=== PATIENT | female | born 1980 | race Caucasian/White ===

== ENCOUNTER → 2016-10-16 | Outpatient (CLI) | payer BC ==
[~2016-10-16] MED LIST: CETI10TA84 PO; PRENTAB26 PO
[2016-10-16 18:12] LABS: URINE APPEARANCE CLEAR (CLEAR); URINE BILIRUBIN NEG (NEG); URINE COLOR YELLOW; URINE NITRITE NEG (NEG); URINE PH 7.5 (4.5-7.5); URINE SPECIFIC GRAVITY 1.012 (1.000-1.030); UROBILINOGEN NEG (NEG)
[2016-10-16 18:40] LABS: MANUAL MICROSCOPIC REQUIRED? NO; REVIEW REQ? NO
== END | disposition home or self-care (01) ==
LOC: C.LABSPEC 17:42
PROVIDERS: ATTEND Obstetrics & Gynecology
DX: O09.519 Supervision of elderly primigravida, unspecified trimester (principal)

== ENCOUNTER → 2016-10-23 | Outpatient (CLI) | payer BC ==
[2016-10-23 10:13] LABS: BASO % 0.3 %; BASO ABS # 0.02 K/uL (0-0.2); COMPLETE YES; EOS % 1.6 %; HEMATOCRIT 39.5 % (37-47); IG% 0.6 %; LYMPH % 31.1 %; LYMPH ABS # 2.41 K/uL (1.2-3.4); MEAN CELL VOLUME 88.4 fL (80-100); MEAN CORPUSCULAR HEMOGLOBIN 31.3 pg (25-34); MEAN CORPUSCULAR HGB CONC 35.4 g/dl (32-36); MONO % 6.5 %; NEUT % 59.9 %; PLATELET COUNT 250 K/uL (130-400); RED BLOOD COUNT 4.47 M/uL (4.2-5.4); WHITE BLOOD COUNT 7.74 K/uL (4.8-10.8)
== END | disposition home or self-care (01) ==
LOC: C.LAB1850 09:10
PROVIDERS: ATTEND Obstetrics & Gynecology
DX: O09.519 Supervision of elderly primigravida, unspecified trimester (principal)

== ENCOUNTER → 2016-10-23 | Outpatient (CLI) | payer BC | END | disposition home or self-care (01) | LOC: C.PAPS 09:49 | PROVIDERS: ATTEND Obstetrics & Gynecology | DX: O09.519 Supervision of elderly primigravida, unspecified trimester (principal) ==

== ENCOUNTER → 2016-10-23 | Outpatient (CLI) | payer BC ==
[2016-10-26 00:25] LABS: CHLAMYDIA TRACH RNA*** NOT DETECTED (NOT DETECTED); GC (NEIS GONORRHOEAE)RNA** NOT DETECTED (NOT DETECTED)
== END | disposition home or self-care (01) ==
LOC: C.LABSPEC 17:28
PROVIDERS: ATTEND Obstetrics & Gynecology
DX: O09.519 Supervision of elderly primigravida, unspecified trimester (principal)

== ENCOUNTER → 2016-12-18 | Outpatient (CLI) | payer BC ==
[2016-12-18 12:50] LABS: GTGD 50 Grams
[2016-12-23 16:57] LABS: AFP CONCENTRATION 25.9 NG/ML; AFP MULTIPLE OF MEDIAN 0.84; AFPTS GESTATIONAL AGE 16.1 WEEKS; AFPTS INSULIN DEP DIABETIC? NO; AFPTS MATERNAL WT 168 LBS; ALPHA-FETOPROTEIN RACE CAUCASIAN=W; ESTRIOL MULTIPLE OF MEDIAN 0.99; HISTORY OF NTD NO; INHIBIN A 193 PG/ML; REPEAT SAMPLE? NO; hCG MULTIPLE OF MEDIAN 1.91
== END | disposition home or self-care (01) ==
LOC: C.LAB1850 09:14
PROVIDERS: ATTEND Obstetrics & Gynecology
DX: O09.512 Supervision of elderly primigravida, second trimester (principal)

== ENCOUNTER → 2017-03-13 | Outpatient (CLI) | payer BC ==
[2017-03-13 12:17] LABS: HEMATOCRIT 37.2 % (37-47)
[2017-03-13 12:18] LABS: URINE APPEARANCE CLEAR (CLEAR); URINE BILIRUBIN NEG (NEG); URINE COLOR DK YELLOW; URINE EPITHELIAL CELL AUTO 20-30 /lpf (0-5); URINE NITRITE NEG (NEG); URINE PH 6.5 (4.5-7.5); URINE SPECIFIC GRAVITY 1.018 (1.000-1.030); UROBILINOGEN NEG (NEG)
[2017-03-13 12:22] LABS: MANUAL MICROSCOPIC REQUIRED? NO; REVIEW REQ? NO
[2017-03-13 14:19] LABS: GTGD 50 Grams
== END | disposition home or self-care (01) ==
LOC: C.LAB1850 10:12
PROVIDERS: ATTEND Obstetrics & Gynecology
DX: O09.512 Supervision of elderly primigravida, second trimester (principal)

== ENCOUNTER → 2017-05-06 | Outpatient (CLI) | payer BC | END | disposition home or self-care (01) | LOC: C.LABSPEC 17:59 | PROVIDERS: ATTEND Obstetrics & Gynecology | DX: O09.513 Supervision of elderly primigravida, third trimester (principal); Z3A.00 Weeks of gestation of pregnancy not specified ==

== ENCOUNTER 2017-05-28 20:04 | Inpatient (IN) | payer BC ==
[~2017-05-28] VITALS: Ht 170.2 cm; Wt 86.4 kg
[2017-05-28 21:25] VITALS: Ht 170.2 cm; Wt 86.4 kg
[2017-05-28] MEDS ORDERED: CETI10TA84 PO (21:25)
[2017-05-28] MEDS ORDERED: PRENTAB26 PO (21:25)
[2017-05-28] MEDS ORDERED: INFLUENZA VIRUS QUAD VACCINE 0.5 ML SYR IM. ONE (22:00)
[2017-05-28] MEDS ORDERED: IV FLUIDS COMPLETED PRN (22:00)
[2017-05-28] MEDS ORDERED: INFLUENZA ADMINISTRATION CHARGE ONE (22:00)
[2017-05-28] MEDS ORDERED: NURSING VERBAL MED ORDER ONE (23:45)
[2017-05-28] MEDS ORDERED: MoRPHine SULFATE 10 MG/ML CARP/VIAL ONE (23:48)
[2017-05-28] MEDS ORDERED: MoRPHine SULFATE 2 MG/ML CARP ONE (23:48)
[2017-05-28] MEDS ORDERED: MoRPHine SULFATE 10 MG/ML CARP/VIAL IM STA (23:50)
[2017-05-28] MEDS ORDERED: MoRPHine SULFATE 2 MG/ML CARP IV STA (23:51)
[2017-05-28] MEDS: LACTATED RINGER'S 1000ML 1,000 ML IV SCH (23:55)
[2017-05-29] MEDS ORDERED: LACTATED RINGER'S 1000ML 1,000 ML IV PRN (01:16)
[2017-05-29] MEDS ORDERED: BUPIVACAINE 0.25% 30 ML VIAL ONE ×2 (01:24→06:27)
[2017-05-29] MEDS ORDERED: FENTANYL CITRATE INJ 50 MCG/1 ML 2 ML VIAL ONE ×2 (01:24→06:26)
[2017-05-29] MEDS ORDERED: FENTANYL 2MCG/ML ROPIV 1.25MG/ML 100ML BAG EPI ONE (01:24)
[2017-05-29] MEDS ORDERED: EpHEDrine SULFATE INJ 50 MG/ML AMP ONE (01:24)
[2017-05-29] MEDS: LACTATED RINGER'S 1000ML 1,000 ML IV SCH ×2 (01:53→07:47)
[2017-05-29 02:05] LABS: HEMATOCRIT 41.3 % (37-47); MEAN CELL VOLUME 94.5 fL (80-100); MEAN CORPUSCULAR HEMOGLOBIN 32.7 pg (25-34); MEAN CORPUSCULAR HGB CONC 34.6 g/dl (32-36); MEAN PLATELET VOLUME 10.8 fL (7.4-10.4); PLATELET COUNT 214 K/uL (130-400); RED BLOOD COUNT 4.37 M/uL (4.2-5.4); WHITE BLOOD COUNT 12.17 K/uL (4.8-10.8)
[2017-05-29] MEDS ORDERED: NALOXONE HCL INJ 1 MG in SODIUM CHLORIDE 0.9% 1000ML 1,000 ML IV PRN ×4 (02:11)
[2017-05-29] MEDS ORDERED: LACTATED RINGER'S 1000ML 500 ML IV PRN (02:11)
[2017-05-29] MEDS ORDERED: EpHEDrine SULFATE INJ 50 MG/ML AMP IV PRN (02:15)
[2017-05-29] MEDS ORDERED: NALBUPHINE HCL INJ 10 MG/ML AMP IV PRN (02:15)
[2017-05-29] MEDS ORDERED: PROMETHAZINE HCL INJ 25 MG in SODIUM CHLORIDE 0.9% 50ML 50 ML IV PRN (02:15)
[2017-05-29] MEDS ORDERED: NALOXONE HCL INJ 0.4 MG/1 ML VIAL/CARP IV PRN (02:15)
[2017-05-29] MEDS ORDERED: DiphenhydrAMINE HCL 50 MG/ML VIAL IV PRN (02:15)
[2017-05-29] MEDS ORDERED: ONDANSETRON INJ 2 MG/ML 2 ML VIAL IV PRN (02:15)
[2017-05-29] MEDS ORDERED: ACETAMINOPHEN 325 MG TAB PO STA (06:38)
--- NOTE | 2017-05-29 06:38 | Anesthesiology Progress Note ---
Post OP Pain Management Date & Time of Service May 29, 2017 at 06:35 Subjective Therapies: Epidural/IV Drugs, Marcaine, Fentanyl pain is 8/10 Objective Cathether Site: examined, palpated, intact, dry, non-tender, without erythma, without exudate Assessment & Plan Pain Relief Assessment: will bolus epidural Plan: at 0632, epidural bolused with 12 ml 0.17% bupivacaine + 100 mcgs fentanyl;neg. aspiration;vital signs stable
[2017-05-29] MEDS ORDERED: OXYTOCIN 30 UNITS/500ML NSS IV ONE (07:08)
[2017-05-29] MEDS: FENTANYL 2MCG/ML ROPIV 1.25MG/ML 100ML BAG EPI PRN ×2 (07:16→11:19)
[2017-05-29] MEDS ORDERED: CALCIUM CARBONATE 500 MG CHEWABLE PO PRN (07:30)
[2017-05-29] MEDS ORDERED: LANOLIN OINT EXT PRN ×2 (12:00)
[2017-05-29] MEDS ORDERED: OXYTOCIN 30 UNITS/500ML NSS IV PRN (12:00)
[2017-05-29] MEDS ORDERED: ACETAMINOPHEN/CODEINE 300/30MG TAB PO PRN ×2 (12:00)
[2017-05-29] MEDS ORDERED: SUPERCREAM 0.870 % 15GM JAR EXT PRN (12:00)
[2017-05-29] MEDS ORDERED: BENZOCAINE 20% AER SPR 82.5 GM CAN EXT PRN (12:00)
--- NOTE | 2017-05-29 12:09 | DELIVERY SUMMARY ---
DATE OF OPERATION: 05/29/2017 DATE OF DELIVERY: 05/29/2017 The patient is a 37-year-old G1, P0 white female, EDC of 06/03/2017 who presented in active labor. She received effective epidural analgesia. She progressed to full dilation and pushed effectively over an intact perineum for delivery of a viable female . Mouth and nasopharynx were suctioned on the perineum. The rest of the infant delivered easily and was placed on the mother's abdomen for further drying and stimulation. The cord was clamped and cut. Cord blood was obtained. Placenta was expressed intact with a 3-vessel cord. The second degree perineal laceration was repaired with 3-0 chromic in the usual fashion. Estimated blood loss was 400 mL. Mother and were doing well after delivery. I attest to the content of the Intraoperative Record and any orders documented therein. Any exception s are noted below.
--- NOTE | 2017-05-29 12:55 | Anesthesia Procedure Note ---
Anesthesia Epidural Removal Nt Date & Time May 29, 2017 at 12:55 Vital Signs Pain Intensity: 0.0 Notes Mental Status: alert / awake / arousable, participated in evaluation Nausea / Vomiting: adequately controlled Pain: adequately controlled Airway Patency, RR, SpO2: stable & adequate BP & HR: stable & adequate Hydration State: stable & adequate Neuraxial Anesthesia: was administered, sensory block is resolving Anesthetic Complications: no major complications apparent, pt satisfied with anesthetic care Epidural: removed without complications, with tip intact
[2017-05-29] MEDS: IBUPROFEN 600 MG TAB PO PRN ×3 (13:06→22:41)
[2017-05-29 16:05] VITALS: BP 109/68; PULSE 88; TEMP 36.5
[2017-05-29 19:00] VITALS: BP 129/80; PULSE 83; TEMP 36.7
[2017-05-29] MEDS: DOCUSATE SODIUM 100 MG CAP PO SCH (20:09)
[2017-05-29] MEDS: ACETAMINOPHEN 325 MG TAB PO PRN (22:41)
[2017-05-29 23:45] VITALS: BP 105/66; PULSE 87; TEMP 36.4
[2017-05-30] MEDS: IBUPROFEN 600 MG TAB PO PRN ×5 (03:26→22:31)
[2017-05-30 03:30] VITALS: BP 116/74; PULSE 88; TEMP 36.4
[2017-05-30 06:28] LABS: HEMATOCRIT 36.1 % (37-47)
[2017-05-30] MEDS ORDERED: PRENATAL VITAMIN TAB PO SCH ×2 (08:00)
[2017-05-30 08:30] VITALS: BP 122/74; PULSE 91; TEMP 36.6; O2SAT 98
[2017-05-30] MEDS: DOCUSATE SODIUM 100 MG CAP PO SCH ×2 (08:43→19:48)
--- NOTE | 2017-05-30 08:58 | Progress Note ---
Subjective May 30, 2017. Subjective conversation w/ patient, physical exam, chart review, lab review Ambulation: ambulating normally Voiding: no voiding problems Passing Gas: Yes Diet Tolerance: Regular Diet Lochia: Moderate Feeding Type: Breast Feeding Pain: controlled Review of Systems Respiratory: No shortness of breath Cardiac: No chest pain Abdomen: No nausea, No vomiting Female : No dysuria Objective Vital Signs Date Time Temp Pulse Resp B/P (MAP) Pulse Ox O2 Delivery O2 Flow Rate FiO2 05/30/17 03:30 36.4 88 20 116/74 (88) Room Air 05/29/17 23:45 36.4 87 20 105/66 (79) Room Air 05/29/17 19:00 36.7 83 20 129/80 (96) Room Air 05/29/17 16:05 36.5 88 20 109/68 (82) Room Air Physical Exam General Appearance: WELL-APPEARING, WD/WN, NO APPARENT DISTRESS Respiratory/Chest: lungs clear, normal breath sounds, no respiratory distress Cardiovascular: regular rate, rhythm, no gallop Abdomen: normal bowel sounds, soft Fundus: Firm, Non-Tender, Relation to Umbilicus (1 below U) Extremities: no calf tenderness Laboratory Results Last 24 Hours Test 05/30/17 05:55 Hemoglobin 12.0 g/dL Hematocrit 36.1 % Assessment and Plan Post- Day#: 1 Continue Routine Care: Resident Physician Supervision Note: I was present with [Name of resident] during the history and exam. I discussed the case with the resident and agree with the findings and plan as documented in the note. Any exceptions or clarifications are listed here: [None ] Documented By: Luiza Yanes - Vital Signs reviewed and WNL. - Hgb 12.0 (on admission was 14.3.) - Blood Type: O+, GBS - , Rubella Immune. - Monitor and Control pain with Motrin PRN, resume regular diet as tolerated, Monitor Lochia. - Encourage breast feeding. - Pt is doing well clinically, although c/o lack of sleep d/t not having her CPAP machine with her. Will order one while inpatient. - Continue routine post care. SCOTT GUZMAN PGY1 FM RESIDENT Resident Tracking Resident Involvement: Resident Care Provided Care Provided: OB Delivery
[2017-05-30] MEDS: ACETAMINOPHEN 325 MG TAB PO PRN ×2 (15:26→19:49)
[2017-05-30 15:30] VITALS: BP 123/80; PULSE 76; TEMP 36.7
--- NOTE | 2017-05-30 15:44 | Discharge Instructions ---
Discharge Instructions Date of Service May 30, 2017. Admission Reason for Admission: Term Iup Labor Discharge Discharge Diagnosis / Problem: DELIVERY VAGINAL Discharge Goals Goal(s): Routine recovery after delivery Medications Continue Dispensed Medications: supercream, dermaplast, tucks, lansinoh Activity Recommendations Activity Limitations: per Instructions/Follow-up section . Instructions / Follow-Up Instructions / Follow-Up ACTIVITY RECOMMENDATIONS: * Gradual return to full activity over the next 2-3 weeks. * No lifting - nothing heavier than baby over the next 2-3 weeks. * Do not engage in vigorous exercise, sexual activity or sports until cleared by your physician. * Do not drive or operate any motorized equipment until cleared by your physician. * You may shower/bathe daily. MEDICATIONS: For discomfort or pain, you may use Acetaminophen (Tylenol), Ibuprofen (Advil), or Naproxen (Aleve) following the package directions. For constipation you may use Colace following the package directions. BREAST CARE: If you are not breast feeding: * Wear a supportive bra 24 hours a day for one to two weeks. * Avoid stimulating your breasts and nipples as much as possible during the first few weeks after delivery. * When taking a shower, have the warm water hit your back, not breasts. * When your breasts feel full, apply ice packs. Usually three to four times a day helps ease the discomfort. * Take a mild pain medication (Tylenol / Motrin) when you are uncomfortable. If breast feeding: * Use breast milk to lubricate nipples. Lansinoh cream may be used for sore nipples. You do not need to remove cream prior to breast feeding. If using a different brand of cream, check the label for directions regarding removal of cream prior to nursing. * Wear a supportive bra. * If having problems with breasts or breast feeding, call a oracle database consultant or your health care provider. EPISIOTOMY CARE: After delivery, if you have an episiotomy (stitches), the following steps will ease discomfort and aid healing. * For the first 24 hours after delivery, place ice packs next to your episiotomy to help reduce swelling. * After the first 24 hour-period, sitz baths, either portable or in the tub, are suggested. A shower with a shower arm sprayed over the episiotomy may be comforting. * Ashley care should be done after each voiding and bowel movement. Squirt warm water from a plastic bottle over the perineum (region of the body between the anus and urinary opening) and pat dry. * Use Dermoplast to ease discomfort. Shake container. Byers directly over the episiotomy. Place a Tucks on a clean sanitary pad next to your episiotomy. SPECIAL CARE INSTRUCTIONS: When you are discharged from the hospital, it is important for you to follow the instructions listed below: * During the first week at home, you should be able to care for yourself and your baby. In addition, the usual light household activities are encouraged. * Limit your activities to the way you feel. Do not try to clean the house or move furniture. Be sensible. * If you actively engage in sports and have done so up until the time of your delivery, you may resume these activities as soon as you feel able. This may take up to one month or even longer. Use good judgment. * Continue to take your vitamins for at least six weeks after the of your baby. * Your diet need not be limited unless you were on a special diet before your delivery. Breast-feeding mothers need around 2500 calories per day and at least 64-80 ounces of fluid per day (8 to 10 glasses). * You should eat foods from the four major food groups. Crash diets or fad diets are to be avoided. Eating lean meats, fresh fruits and vegetables, low-fat dairy products, high fiber foods and a regular exercise program, will help you get back to your pre- weight without putting your health at risk. * Constipation is sometimes a problem after delivery. Take a mild laxative as needed. If breast feeding, Milk of Magnesia is acceptable to use. You may use a suppository or Fleets enema if no episiotomy. * A daily shower or tub bath is suggested. Be sure to thoroughly and gently dry the perineum. * A bloody vaginal discharge will usually continue until around four weeks post . A small amount of bleeding may continue for as long as six weeks. Vaginal discharge changes from the bright red bleeding after delivery to pink then brownish and finally yellowish-pink before becoming white and disappearing. * Bleeding may increase with activity. Your first period may come in 4-8 weeks. If you are breast feeding, your period may be delayed even longer. * Steen (sex) can begin whenever both you and your partner feel comfortable and do not have any form of genital infection. It is recommended that you wait at least six weeks for internal and external healing to occur. If you have questions, please talk to your health care practitioner. A condom should be used to prevent infection and . * Foreplay, gentle intercourse and lubrication is very important the first several times to prevent pain. A water-based lubricant such as K-Y jelly or Astroglide may be used. * If you have RH negative blood and your baby is RH positive, you will receive RHOGAM by injection prior to discharge. The nurse will give you a card to keep with you that has the date and place that you received RHOGAM after delivery. * During your care, you had a Rubella screen done to check for the presence of rubella antibodies in your blood. If your test was negative, you will receive a Rubella vaccine prior to discharge. This vaccine may cause a fever, soreness at the injection site and flu-like symptoms. If these symptoms persist, notify your health care practitioner. is not advised for one month after a Rubella vaccine. * Verbalizes understanding of car seat law as reviewed with patient nursing. * Car Seat hand-out given and reviewed with patient by nursing. * Shaken baby information reviewed with patient by nursing. Call you doctor if: * Heavy bleeding (saturating several pads an hour) or passing clots the size of your fist. * A fever >101 degrees F (38.3 degrees C) on two occasions four hours apart and /or chills. * Unusual pain in the pelvic or vaginal areas. * "Baby Blues" lasting longer than two weeks. If you have any questions or concerns, call your health care practitioner at . FOLLOW UP VISIT: * Please call the office at to schedule a 6 week examination. It is important you keep this appointment. It is important for you to make arrangements for either yearly or twice yearly check-ups thereafter. Current Hospital Diet Patient's current hospital diet: Regular OB Diet Discharge Diet Recommended Diet: Regular Diet Pending Studies Studies pending at discharge: no Medical Emergencies . Who to Call and When: Medical Emergencies: If at any time you feel your situation is an emergency, please call 911 immediately. . Non-Emergent Contact Non-Emergency issues call your: Primary Care Provider . . "Provider Documentation" section prepared by Nidhi Breaux. . VTE Core Measure Inpt VTE Proph given/why not?: Treatment not indicated
[2017-05-30] MEDS ORDERED: BISACODYL 5 MG TABEC PO SCH (20:00)
[2017-05-30 23:35] VITALS: BP 122/80; PULSE 76; TEMP 36.5; O2SAT 98
[2017-05-31] MEDS: IBUPROFEN 600 MG TAB PO PRN ×2 (02:32→08:49)
[2017-05-31] MEDS: ACETAMINOPHEN 325 MG TAB PO PRN (05:23)
[2017-05-31 07:52] VITALS: BP 114/73; PULSE 76; TEMP 36.7; O2SAT 98
--- NOTE | 2017-05-31 07:59 | Progress Note ---
Subjective May 31, 2017. Subjective conversation w/ patient, physical exam, chart review, lab review Ambulation: ambulating normally Voiding: no voiding problems Passing Gas: Yes Diet Tolerance: Regular Diet Lochia: Moderate Feeding Type: Breast Feeding Pain: controlled Review of Systems Respiratory: No shortness of breath Cardiac: No chest pain Abdomen: No nausea, No vomiting Female : No dysuria Objective Vital Signs Date Time Temp Pulse Resp B/P (MAP) Pulse Ox O2 Delivery O2 Flow Rate FiO2 05/31/17 07:52 36.7 76 21 114/73 (87) 98 Room Air 05/30/17 23:35 98 Room Air 05/30/17 23:35 36.5 76 18 122/80 (94) 98 Room Air 05/30/17 15:30 Room Air 05/30/17 15:30 36.7 76 18 123/80 (94) Room Air 05/30/17 08:30 Room Air 05/30/17 08:30 36.6 91 18 122/74 (90) 98 Room Air Physical Exam General Appearance: WELL-APPEARING, WD/WN, NO APPARENT DISTRESS Respiratory/Chest: lungs clear, normal breath sounds, no respiratory distress Cardiovascular: regular rate, rhythm, no gallop Abdomen: normal bowel sounds, soft Fundus: Firm, Non-Tender, Relation to Umbilicus (2 below U) Extremities: no calf tenderness Assessment and Plan Post- Day#: 2 Continue Routine Care: - Vital Signs reviewed and WNL. - Blood Type: O+, GBS - , Rubella Immune. - Monitor and Control pain with Motrin PRN, resume regular diet as tolerated, Monitor Lochia. - Encourage breast feeding. - Pt is doing well clinically. - Pt counselled on discharge instructions. SCOTT BREAUX PGY1 FM RESIDENT Resident Physician Supervision Note: I was present with Dr. Breaux during the history and exam. I discussed the case with the resident and agree with the findings and plan as documented in the note. Any exceptions or clarifications are listed here: PPD#2 doing well, discharge home today. Discharge instructions discussed. Documented By: Melinda Flowers Resident Tracking Resident Involvement: Resident Care Provided Care Provided: OB Delivery
[2017-05-31] MEDS: DOCUSATE SODIUM 100 MG CAP PO SCH (08:44)
[2017-05-31 09:30] VITALS: BP_DIAS 73; PULSE 76; TEMP 36.7
== END 2017-05-31 11:30 | disposition home or self-care (01) | DRG 775 ==
LOC: C.OPB 20:04 → C.LD 20:04 → C.OPB 21:20 → C.LD 22:25 → OBSVTOIN 05-29 01:17 → C.OBG 05-29 14:39
PROVIDERS: ADMIT Obstetrics & Gynecology; ATTEND Obstetrics & Gynecology
PROC: 10E0XZZ Delivery of Products of Conception, External Approach (ICD-10-PCS; principal; 2017-05-29)
PROC: 0KQM0ZZ Repair Perineum Muscle, Open Approach (ICD-10-PCS; principal; 2017-05-29)
DX: O99.214 Obesity complicating childbirth (principal); O99.354 Diseases of the nervous system complicating childbirth; Z37.0 Single live birth; E66.9 Obesity, unspecified; O26.893 Other specified pregnancy related conditions, third trimester; O70.1 Second degree perineal laceration during delivery; G47.33 Obstructive sleep apnea (adult) (pediatric); Z99.89 Dependence on other enabling machines and devices; Z3A.39 39 weeks gestation of pregnancy; Z79.899 Other long term (current) drug therapy; Z68.29 Body mass index [BMI] 29.0-29.9, adult; Z23 Encounter for immunization

== ENCOUNTER → 2017-06-09 | Outpatient (CLI) | payer BC ==
[2017-06-09 16:56] LABS: URINE APPEARANCE CLEAR (CLEAR); URINE BILIRUBIN NEG (NEG); URINE COLOR YELLOW; URINE NITRITE NEG (NEG); UROBILINOGEN NEG (NEG)
[2017-06-09 17:00] LABS: MANUAL MICROSCOPIC REQUIRED? NO; REVIEW REQ? NO
== END | disposition home or self-care (01) ==
LOC: C.LAB1850 14:56
PROVIDERS: ATTEND Obstetrics & Gynecology
DX: R30.0 Dysuria (principal)

== ENCOUNTER 2021-01-26 05:25 | Inpatient (IN) ==
[2021-01-26] MEDS ORDERED: OXYTOCIN 30 UNITS/500 ML BAG IV PRN ×3 (06:18→14:55)
[2021-01-26 06:57] LABS: Hematocrit (blood only) 42.8 % (37-47); Hemoglobin 14.5 g/dL (12.0-16.0); Mean Corpuscular Hemoglobin 32.4 pg (25-34); Mean Corpuscular Hgb Conc 33.9 g/dL (32-36); Mean Corpuscular Volume 95.7 fL (80-100); Platelet Count 199 K/uL (130-400); RDW Coefficient of Variation 13.4 % (11.5-14.5); RDW Standard Deviation 46.5 fL (36.4-46.3); Red Blood Count 4.47 M/uL (4.2-5.4); White Blood Count 8.63 K/uL (4.8-10.8)
[2021-01-26] MEDS: LACTATED RINGER'S 1,000 ML IV PRN ×2 (07:42→12:19)
--- NOTE | 2021-01-26 09:08 | History & Physical Report ---
Date of Service January 26, 2021 Assessment & Plan (1) Encounter for induction of labor: 40 y/o at 39w4d ROBIN 01/29/21 (via LMP) who presents for IOL for SROM. Stable. - SROM at 0315. Large, clear fluid. - vitals reviewed, stable - induction via pitocin. starting dose: 1 milliunit/min. Increase dose by 2 milliunits/min every 30 min. - NPO. LR 125mL/hr - Patient will consider epidural if pain intolerable, but will try w/o first. (2) SROM (spontaneous rupture of membranes): - as per above (3) Advanced maternal age (AMA) in : - history noted (4) Severe obstructive sleep apnea: - uses CPAP at night at baseline Admission and Anticipated Discharge Date Admission Date: January 26, 2021 History of Present Illness Primary Care Provider: Ken Bernstein MD 40 y/o at 39w4d ROBIN 01/29/21 (via LMP) who presents for IOL for SROM (@0315 today). complicated by AMA. Patient has severe DOROTEO. + contractions; - movement; + fluid loss; - bloody show Had regular appointments with OB. Labs: (06/19/20) Blood type: O pos Antibody screen: neg H.5 (today) Hct: 42.8 (today) WBC: 8.63 (today) Plt: 199 (today) Rubella: immune RPR: neg Gonorrhea: not detected Chlamydia: not detected HIV: neg HbSAg: neg GBS: neg (01/04/21 Labs Reviewed: declined genetics/cf/sma--[facility] [place] [facility] 16 week 2 hr gtt. Allergies Allergy/AdvReac Type Severity Reaction Status Date / Time adhesive Allergy Mild RASH Verified 01/26/21 05:43 Home Medications Medication Instructions Recorded Confirmed Type prenat.vits,man,[id number] 1 tab PO DAILY 06/12/20 01/26/21 History montelukast 10 mg tablet 10 mg PO DAILY #30 tab 07/27/20 01/26/21 Rx cetirizine [Zyrtec] 10 mg PO DAILY PRN 01/26/21 01/26/21 History Patient History Medical History (Updated 01/26/21 @ 09:25 by Giovanny Hernandez MD) History of chicken pox Hx of migraines Kidney stone Surgical History History of colposcopy History of oral surgery History of tonsillectomy Family History Grandmother (Paternal) Cervical cancer Father Hypertension Allergic rhinitis Enlarged aorta Mitral valve prolapse Mother Allergic rhinitis Hypothyroid Brother Allergic rhinitis Obstructive sleep apnea Denies family history of Ovarian cancer Breast cancer Social History Smoking Status: Never smoker Hx Alcohol Use: No Hx Substance Use: No Preferred Language: Syrian Communication Ability: Effective Bottling Line Operator Required: No Beliefs That Will Affect Care: None marital status: marital status details: Manuel Stovall [phone] Current Living Situation: Spouse and Family Current Living Situation Comment: lives with spouse, daughter, dog current occupational status: employed 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 Denies breast pain. Denies dysuria. Denies headache or changes in vision. Denies nausea/vomiting. Denies numbness, tingling, weakness. Denies calf pain. Mood is ok. Physical Exam Physical Exam: General: Alert, oriented. No acute distress. Cardiac: Regular rate and rhythm, no murmurs/rubs/gallops. Respiratory: Clear to auscultation bilaterally a/p, no wheezes/rales/rhonchi. No increased work of breathing. Symmetrical chest rise. No respiratory distress. Abdomen: Gravid. Pelvic: Dilation 1 cm (loose); Effacement 50%; Station -2. Soft. Posterior. EFW 7-8lbs. Exam per Dr. Latif. Lower Extremities: 1+ bilat lower extremity edema, slightly worse on R. No deep calf pain. Bautista's negative bilaterally Results & Data ([facility]) Vital Signs (Past 12 Hours) Vital Signs Temp Pulse Resp BP 01/26/21 09:05 83 116/61 01/26/21 07:44 82 120/60 01/26/21 07:01 36.7 C 93 H 16 114/57 L 01/26/21 05:41 36.7 C 106 H 18 129/77 Code Status & VTE Plan Code Status full VTE Prophylaxis Plan VTE Prophylaxis will be ordered: No Monitoring External Monitor External FHT and external uterine monitors used; Category 1 tracing; moderate FHT variability. Baseline 130bpm. No late or variable decelerations. Tocodynamometer External toco. Contractions are q3-5min Resident Activity Tracking Resident Involvement: Resident Care Provided Care Provided: OB Delivery
[2021-01-26] MEDS ORDERED: SODIUM CHLORIDE 0.9% INJ 10 ML VIAL ONE (09:37)
[2021-01-26] MEDS ORDERED: fentaNYL citrate 100 MCG/2 ML VIAL ONE (09:37)
[2021-01-26] MEDS ORDERED: BUPIVACAINE 0.25% 30 ML VIAL ONE (09:37)
[2021-01-26] MEDS ORDERED: ePHEDrine sulfate 50 MG/ML AMP ONE (09:37)
[2021-01-26] MEDS ORDERED: fentaNYL 2MCG/ML ROPIVACAINE 1.25MG/ML 100 ML BAG EPI ONE (09:38)
[2021-01-26] MEDS ORDERED: diphenhydrAMINE 50 MG/ML VIAL IV PRN (11:45)
[2021-01-26] MEDS ORDERED: NALOXONE HCL 1 MG in SODIUM CHLORIDE 0.9% 1000ML 1,000 ML IV PRN (11:45)
[2021-01-26] MEDS ORDERED: ePHEDrine sulfate 50 MG/ML AMP IV PRN (11:45)
[2021-01-26] MEDS ORDERED: NALOXONE HCL 0.4 MG/1 ML VIAL/CARP IV PRN (11:45)
[2021-01-26] MEDS ORDERED: fentaNYL 2MCG/ML ROPIVACAINE 1.25MG/ML 100 ML BAG EPI PRN (11:45)
[2021-01-26] MEDS ORDERED: ONDANSETRON INJ 2 MG/ML 2 ML VIAL IV PRN (11:45)
--- NOTE | 2021-01-26 11:46 | Anesthesiology Consultation ---
Date of Service January 26, 2021 Assessment & Plan (1) Encounter for pre-operative examination: Chart Review Chart Review: Patient NOT seen in Pre Admission Testing and Acceptable Risk for Labor Epidural Consults Requested none ASA ASA2 Proposed Anesthesia Anesthesia Type: Labor Epidural Risk / Benefits Reviewed With: PT / POA / Parent / Guardian, Accepts Plan and Informed Consent Obtained History Height/Weight Height: 5 ft 7 in Weight: 95.708 kg Allergies Allergy/AdvReac Type Severity Reaction Status Date / Time adhesive Allergy Mild RASH Verified 01/26/21 05:43 Medications Home Medications Medication Instructions Recorded Confirmed Last Taken prenat.vits,man,[id number] 1 tab PO DAILY 06/12/20 01/26/21 01/25/21 21:00 montelukast 10 mg tablet 10 mg PO DAILY #30 tab 07/27/20 01/26/21 01/25/21 21:00 cetirizine [Zyrtec] 10 mg PO DAILY PRN 01/26/21 01/26/21 01/25/21 08:00 Active Medications Generic Name Dose Route Start Last Admin Trade Name Freq PRN Reason Stop Dose Admin Lactated Ringer's 1,000 mls @ 125 mls/hr 01/26/21 06:18 01/26/21 10:26 Lr IV 01/28/21 06:17 125 mls/hr .Q8H PRN Infusion L&D Protocol Protocol Oxytocin 30 units in 500 mls @ 7 mls/hr 01/26/21 07:11 01/26/21 09:45 Pitocin IV 01/28/21 07:10 0.42 units/hr .Q24H PRN 7 mls/hr Labor Induction/Augmentation Titration Protocol 0.42 UNITS/HR NPO Date Last Intake of Fluids: 01/26/21 Time Last Intake of Fluids: 11:00 Date Last Intake of Solids: 01/26/21 Time Last Intake of Solids: 04:00 Past Medical History Medical History (Updated 01/26/21 @ 11:46 by César Loco MD) History of chicken pox Hx of migraines Kidney stone Exercise / Class Metabolic Activity II 4-5 Yardwork/Stairs/Walk up hill Past Family History Family History Grandmother (Paternal) Cervical cancer Father Hypertension Allergic rhinitis Enlarged aorta Mitral valve prolapse Mother Allergic rhinitis Hypothyroid Brother Allergic rhinitis Obstructive sleep apnea Denies family history of Ovarian cancer Breast cancer Past Surgical History Surgical History History of colposcopy History of oral surgery History of tonsillectomy Past Anesthesia History No Hx of Anesthesia Complications and No Family Hx of Anesthesia Complications History of PONV No Hx of PONV and No Hx of Motion Sickness Social History Smoking Status: Never smoker Hx Alcohol Use: No Hx Substance Use: No Physical Exam Vital Signs Last Vital Signs Temp 36.7 C 01/26/21 09:47 Pulse 83 01/26/21 11:44 Resp 20 01/26/21 09:47 BP 102/55 L 01/26/21 11:43 Pulse Ox 99 01/26/21 11:39 ENMT Mouth: no dentition abnormality Thyromental Distance: > or= 3.5 Finger Breadths Mallampati Class: II Neck normal visual inspection Respiratory normal respiratory effort Auscultation: lungs clear to auscultation bilaterally Cardiovascular Rate/Rhythm: regular rate and regular rhythm Psychiatric Orientation: alert Lab Results Anesthesia Preop Results Results Anesthesia Widget: WBC 8.63 K/uL (4.8-10.8) 01/26/21 Hgb 14.5 g/dL (12.0-16.0) 01/26/21 Hct 42.8 % (37-47) 01/26/21 Plt 199 K/uL (130-400) 01/26/21 Testing Laboratory Results 01/26/21 06:42
--- NOTE | 2021-01-26 13:21 | Labor Progress Brief Note ---
Date of Service January 26, 2021 Subjective Called by RN for patient complete and involuntarily pushing. Assessment & Plan (1) PROM (premature rupture of membranes): ROM @ 0315 f/b IOL with pitocin, nearly complete, allow remaining cervix to dilate away, reposition / resuscitate as needed to get FHT Cat 1 or can begin second stage with MD holding lip back actively if needed. Admission and Anticipated Discharge Date Admission Date: January 26, 2021 Physical Exam Physical Exam: anterior lip, station -1 FHT 120 mod heather +acc +recurrent variable decels with ctx Maternal pushing effort not able to move head beyond existing cervical lip in a lasting manner Patient expresses she is able to labor down without pushing. Results & Data ([facility]) Vital Signs (Past 12 Hours) Vital Signs Temp Pulse Resp BP Pulse Ox 01/26/21 13:14 93 H 99 01/26/21 13:09 90 100 01/26/21 13:04 88 124/63 100 01/26/21 12:59 89 100 01/26/21 12:54 101 H 100 01/26/21 12:49 98 H 100 01/26/21 12:48 77 114/58 L 01/26/21 12:44 82 99 01/26/21 12:39 79 100 01/26/21 12:34 85 99 01/26/21 12:33 78 112/58 L 01/26/21 12:29 90 100 01/26/21 12:24 92 H 99 01/26/21 12:19 81 105/58 L 100 01/26/21 12:14 75 98 01/26/21 12:09 75 100 01/26/21 12:04 79 99 01/26/21 12:01 85 114/56 L 01/26/21 11:59 81 100 01/26/21 11:57 82 116/62 01/26/21 11:54 78 99 01/26/21 11:52 82 116/58 L 01/26/21 11:49 92 H 100 01/26/21 11:46 85 94/54 L 01/26/21 11:44 83 98 01/26/21 11:43 84 102/55 L 01/26/21 11:41 81 94/48 L 01/26/21 11:39 86 99 01/26/21 11:36 93 H 107/71 01/26/21 11:34 91 H 103/66 98 01/26/21 11:29 98 H 98 01/26/21 11:19 94 H 98/65 L 01/26/21 10:53 112 H 117/76 01/26/21 09:47 98.1 F 80 20 106/56 L 01/26/21 09:05 83 116/61 01/26/21 07:44 82 120/60 01/26/21 07:01 98.1 F 93 H 16 114/57 L 01/26/21 05:41 98.1 F 106 H 18 129/77 Coding Level of Care Code None Diagnoses PROM (premature rupture of membranes) O42.90
--- NOTE | 2021-01-26 14:36 | Delivery Summary ---
Vaginal Delivery Summary Date of Service January 26, 2021 Vaginal Delivery Summary DIAGNOSES: 1. Hurley intrauterine at 39w4d gestation. 2. PROM followed by Induction of labor. 3. Group B Streptococcus Neg. 4. Nuchal cord x1 with terminal robert and terminal meconium PROCEDURE: Spontaneous vaginal delivery and repair of second degree laceration. SURGEON: Joann Latif MD. FORM GRADER: None. ESTIMATED BLOOD LOSS: 300 mL. COMPLICATIONS: None. PLACENTA: Spontaneous and intact with a 3-vessel cord. DISPOSITION: Stable to labor and delivery. DESCRIPTION: The patient pushed well and brought the head to in OA position. She was encouraged to continue pushing due to bradycardia through the last few contractions with difficulty tracing the FHT, and she did deliver the head prior to the need for operative vaginal delivery, though she was being counseled on this option just in case and a Kiwi had been placed on the table. There was a tight nuchal cord which was reduced on the perineum. The right shoulder was anterior. The left arm was a compound presentation. The shoulders and body delivered without any difficulty, and the infant was placed on the maternal abdomen. It was vigorous and moving all extremities, and making respiratory efforts, though terminal meconium was present and suctioned / wiped promptly. The cord was doubly clamped by the MD and then cut by the FOB. The placenta delivered spontaneously and was noted to be intact and with a 3VC. The cervix, vagina and perineum were examined and were found to have a second degree laceration which was repaired with vicryl suture in the usual manner. The fundus was firm and lochia minimal immediately after delivery. [facility] Vaginal Delivery Charge Vaginal Delivery Codes: 47155 global code for the antepartum, delivery, and post-
[2021-01-26] MEDS ORDERED: ACETAMINOPHEN 325 MG TAB PO PRN (14:55)
[2021-01-26] MEDS ORDERED: SUPERCREAM 0.870% 15 GM JAR EXT PRN (14:55)
[2021-01-26] MEDS ORDERED: BENZOCAINE 20% AER SPR 82.5 GM CAN EXT PRN (14:55)
[2021-01-26] MEDS ORDERED: CETIRIZINE HCL 10 MG TABLET PO PRN (14:55)
[2021-01-26] MEDS ORDERED: LACTATED RINGER'S 1,000 ML IV SCH (14:55)
[2021-01-26] MEDS ORDERED: HYDROCORTISONE ACETATE 25 MG SUPP PR PRN (14:55)
[2021-01-26] MEDS ORDERED: DIPHTHERIA/TETANUS/PERTUSSIS 0.5 ML SYR/VIAL IM ONE (14:55)
--- NOTE | 2021-01-26 16:39 | Anesthesia Procedure Note ---
Date of Service January 26, 2021 Anesthesia Post Epidural Note Vital Signs Vital Signs: Temp Pulse Resp BP Pulse Ox 36.6 C 96 H 16 113/55 L 99 01/26/21 15:00 01/26/21 16:30 01/26/21 15:00 01/26/21 16:30 01/26/21 14:24 Pain Intensity Bilateral Abdomen: Pain Intensity: 0 Notes Mental Status: alert / awake / arousable and participated in evaluation Nausea / Vomiting: adequately controlled Pain: adequately controlled Airway Patency, RR, SpO2: stable & adequate BP & HR: stable & adequate Hydration State: stable & adequate Neuraxial Anesthesia: was administered and sensory block is resolving Anesthetic Complications: no major complications apparent and Pt Satisfied with anesthetic care Epidural: Removed without complications and With tip intact
[2021-01-26] MEDS: IBUPROFEN 600 MG TAB PO PRN (18:24)
[2021-01-26] MEDS: DOCUSATE SODIUM 100 MG CAP PO SCH (21:22)
[2021-01-27] MEDS: IBUPROFEN 600 MG TAB PO PRN ×3 (00:39→11:49)
--- NOTE | 2021-01-27 05:28 | Obstetrical Progress Note ---
Date of Service <Giovanny Hernandez MD - Last Filed: 01/27/21 06:41> January 27, 2021 Assessment & Plan <Giovanny Hernandez MD - Last Filed: 01/27/21 06:41> (1) state: 40 y/o at 39w4d s/p on 01/25/21, PPD1. O pos. RI. 2nd deg lac repair. Nuchal cordx1. - continue routine care - meeting PPD1 milestones - H/H pending - continue , ambulation Subjective <Giovanny Hernandez MD - Last Filed: 01/27/21 06:41> Ambulation: ambulating normally Voiding: no voiding problems Passing Gas:: Yes Diet Tolerance:: regular diet Lochia:: Moderate Feeding Type:: breast feeding Current Pain Level(1-10): 4 Patient is doing ok. No complaints. Review of Systems Denies fever, chills, sweats Denies shortness of breath, chest pain, palpitations. Denies breast pain. Denies dysuria. Denies headache or changes in vision. Denies nausea/vomiting. Denies numbness, tingling, weakness. Denies calf pain. Denies mood complaints. Physical Exam <Giovanny Hernandez MD - Last Filed: 01/27/21 06:41> General: Alert, oriented. No acute distress. Cardiac: Regular rate and rhythm, no murmurs/rubs/gallops. Respiratory: Clear to auscultation bilaterally, no wheezes/rales/rhonchi. No respiratory distress. Abdomen: , soft, nontender. Uterus: Uterine fundus firm, palpable 1cm below umbilicus. Lower Extremities: No lower extremity edema or swelling. No deep calf pain. Bautista's negative bilaterally. Results & Data ([facility]) <Giovanny Hernandez MD - Last Filed: 01/27/21 06:41> Vital Signs (Past 12 Hours) Vital Signs Temp Pulse Resp BP Pulse Ox 01/27/21 04:12 36.5 C 80 18 134/80 99 01/26/21 23:00 36.7 C 84 18 132/75 01/26/21 19:45 36.8 C 86 18 109/66 01/26/21 17:32 37.2 C 85 18 124/74 98 Medications Administered <Joann Latif MD - Last Filed: 01/27/21 07:45> Co-Signing Physician Notes Resident Physician Supervision Note: I interviewed and examined the patient. Discussed with Dr. Hernandez and agree with findings and plan as documented in the note. Any exceptions or clarifications are listed here: [ ] Documented By: Joann Latif MD, FACOG
[2021-01-27] MEDS ORDERED: PRENATAL VITAMIN 1 TAB PO SCH (08:00)
[2021-01-27 08:37] LABS: Hematocrit (blood only) 36.7 % (37-47); Hemoglobin 12.4 g/dL (12.0-16.0)
[2021-01-27] MEDS ORDERED: MONTELUKAST SODIUM 10 MG TABLET PO SCH (09:00)
[2021-01-27] MEDS: DOCUSATE SODIUM 100 MG CAP PO SCH (09:05)
== END 2021-01-27 19:11 | disposition home or self-care (01) ==
LOC: OPB 05:25 → 4S1 05:28 → 4S2 17:16